=== PATIENT | male | born 1980 | race Caucasian/White ===

== ENCOUNTER 2016-12-25 04:00 | Inpatient (IN) | payer OTHER ==
[~2016-12-25] VITALS: Ht 170.2 cm; Wt 95.3 kg
--- NOTE | ~2016-12-25 | PN ---
Unit #: [id number] #: [id number] Patient: KATELYN SMITH [id number] [facility] [address] [place] [address] [id number] I MR#: [id number] NAME: KATELYN SMITH ROOM: [facility] Age: 36 Sex: M Admission Date: 12/25/2016 : 1980 Attending Physician: Luis E Dobbs M.D. Admitting Physician: Luis E Dobbs M.D. Primary Care Physician: Generic Doctor Not In System [facility] PROGRESS NOTES DATE OF SERVICE: 12/29/2016 SUBJECTIVE Mr. Smith is a 36-year-old white male with alcohol dependence and mood disorder, who was seen today and chart was reviewed, and case was discussed with the staff. He appears to be doing better and has been showing improvement in confusion and cognitive impairment . MENTAL STATUS EXAMINATION Young white male who was casually dressed with fair personal hygiene, appears to be in no acute distress or discomfort. He was awake and alert with impaired attention and concentration. His mood was anxious with a congruent affect. His speech was slow and tangential. He denies any suicidal or homicidal ideations, and also denies any auditory or visual hallucinations. His insight and judgment remain slightly impaired. TREATMENT PLAN 1. We will continue him on his current medications and treatment protocol. We will monitor his response to medications and make further adjustments as needed. 2. We will continue to follow up. Dictated by... Maria De Jesus Moralez/tom TD: 12/29/2016 15:58 JOB #: [id number] [facility] PROGRESS NOTES Page 1 of 1 X Luis E Dobbs MD PROGRESS NOTE
--- NOTE | ~2016-12-25 | PA ---
Unit #: [id number] #: [id number] Patient: KATELYN SMITH [id number] [facility] [address] [place] [address] [id number] I MR#: [id number] NAME: KATELYN SMITH. ROOM: P203 Age: 36 Sex: M Admission Date: 12/25/2016 : 1980 Date of Assessment: Attending Physician: Luis E Dobbs M.D. Admitting Physician: Luis E Dobbs M.D. Primary Care Physician: Generic Doctor Not In System PSYCHIATRIC ASSESSMENT IDENTIFYING DATA Mr. Smith is a 36-year-old, single, white male, who is a resident of [place], [place], and was transferred to from the emergency room at [facility], where an initial assessment was completed by the [facility] Team. CHIEF COMPLAINT "I've been drinking a lot and I'm suicidal." HISTORY OF PRESENT ILLNESS Mr. Smith is a 36-year-old white male with dual diagnosis of mood disorder and substance abuse, who brought himself to the Emergency Room stating that he has been drinking and he is suicidal and that his dad and he is depressed and arrived at [facility] with suicidal ideation, intent, means, and plan. Reports that he intended to take multiple pills of trazodone to commit suicide and stated that he has been drinking heavily and planned to commit suicide on 12/24/2016 and self admitted himself to the emergency room due to suicidal ideations. He was seen to be extremely depressed upon presentation stating that he has been severely depressed since the of his father and that he is having feelings of hopelessness, worthlessness and reports poor social support system and multiple stressors. He reports that his mother and father both have within the past 2 years and reports that he witnessed the mother commit suicide, and reports minimal supportive relationships and is unable to identify any specific individual in his support system and was seen to be a significant danger to himself and therefore, recommendation for inpatient level of care for safety and stabilization was made and patient was transferred to us. SUBSTANCE ABUSE HISTORY The patient reports history of experimentation with cannabis, but reports alcohol to be his drug of choice stating that he has been drinking since he was 14 years old and currently has been drinking 3 pints a day and has used heroin in the past as well with the last use being 10 days ago. PAST PSYCHIATRIC HISTORY The patient has had a history of inpatient psychiatric hospitalization in the past and review of the medical records indicate that he has been diagnosed and treated for mood disorder and is supposed to be on Effexor, Risperdal and hydroxyzine, though it is not clear if he has been compliant with the medication as he has not been able to show a therapeutic response, not to mention that he has been drinking heavily in conjunction with the medications with maximum response to antidepressant therapy. Unit #: [id number] #: [id number] Patient: KATELYN SMITH PAST MEDICAL HISTORY The patient's medical history is significant for gastroesophageal reflux disease. ALLERGIES Penicillin, Ceclor, erythromycin and sulfa drugs. PERSONAL AND SOCIAL HISTORY A 36-year-old white male, who reports that he is single, unemployed, and lives at home by himself and has poor social support system. MENTAL STATUS EXAMINATION Young white male, who was casually dressed with fair personal hygiene, appears to be in no acute distress or discomfort. He was awake and alert on interaction with intact orientation to time, place, and person. His mood was anxious and depressed with a congruent affect. His speech was slow and restricted in content. His thought processes were disorganized with some looseness of associations and flight of ideas and suicidal ideations. His insight and judgment remain significantly impaired. DIAGNOSTIC IMPRESSION Psychiatric: Major depressive disorder, recurrent, moderate, without psychotic features; alcohol dependence, moderate and acute withdrawals. Medical: Gastroesophageal reflux disease. Stressors: Moderate psychosocial stressors. TREATMENT PLAN 1. The patient has presented with a history of mood disorder and substance abuse and has been decompensating and will need inpatient hospitalization for safety and stabilization. We will start him back on his home medications and detox protocol will be initiated as well. We will monitor response to treatment interventions and we will make further adjustments as needed. 2. Supportive therapy was provided to the patient. 3. Safe, structured, and nourishing environment will be provided. ESTIMATED LENGTH OF STAY 4 to 5 days. ABILITY TO HELP SELF Limited. WILLINGNESS TO HELP SELF The patient appears to be willing to help self. STRENGTHS 1. Communicative. 2. Cooperative. PROBLEMS 1. Chronic dysphoric symptoms. 2. Poor social support system. DISCHARGE CRITERIA This will be contingent upon the patient's ability to show resolution of Unit #: [id number] #: [id number] Patient: KATELYN SMITH his depression and anxiety and his ability to stay safe to himself, particularly after discharge from the hospital. Dictated by... Maria De Jesus Moralez/tom TD: 12/26/2016 07:46 JOB #: [id number] PSYCHIATRIC ASSESSMENT Page 1 of 1 X Luis E Dobbs MD PSYCHIATRIC ASSESSMENT
--- NOTE | ~2016-12-25 | PN ---
Unit #: [id number] #: [id number] Patient: KATELYN SMITH [id number] [facility] [address] [place] [address] [id number] I MR#: [id number] NAME: KATELYN SMITH ROOM: P203 Age: 36 Sex: M Admission Date: 12/25/2016 : 1980 Attending Physician: Luis E Dobbs M.D. Admitting Physician: Luis E Dobbs M.D. Primary Care Physician: Generic Doctor Not In System [facility] PROGRESS NOTES DATE 12/26/2016 DISCUSSION Mr. Smith is a 36-year-old white male who was seen today and chart was reviewed and case was discussed with the staff who report patient has been confused, anxious, withdrawn and pacing the hallways and has been exhibiting bizarre behavior. Meanwhile, he reports persistent depression and poor sleep at night. No agitation or aggression has been noted. MENTAL STATUS EXAMINATION Young white male who was casually dressed with fair personal hygiene and appears to be in no acute distress or discomfort. He was awake and alert on interaction with intact orientation. His mood was anxious with congruent affect. He denies any suicidal or homicidal ideations. His insight and judgement remains slightly impaired. TREATMENT PLAN 1. Will continue his current medications and treatment protocol. Will monitor his response to the medications and make further adjustments as needed. 2. Will continue to follow up. Dictated by... Maria De Jesus Moralez/scotty TD: 12/26/2016 18:12 JOB #: [id number] Unit #: [id number] #: [id number] Patient: KATELYN SMITH PROGRESS NOTES Page 1 of 1 X Luis E Dobbs MD X PROGRESS NOTE
--- NOTE | ~2016-12-25 | CO ---
Unit #: [id number] #: [id number] Patient: KATELYN SMITH [id number] [facility] [address] [place] [address] [id number] I MR#: [id number] NAME: KATELYN SMITH ROOM: [facility] Age: 36 Sex: M Admission Date: 12/25/2016 : 1980 Attending Physician: Luis E Dobbs M.D. Primary Care Physician: Generic Doctor Not In System Consultation Date: 12/25/2016 CONSULTATION REPORT HISTORY OF PRESENT ILLNESS Katelyn reports history of thrush and it has been treated in the past with oral swish and swallow. Recently, he has noticed burning in his mouth and white patches on his tongue. This started about 4 to 5 days ago. He has no other complaints. PHYSICAL EXAMINATION CARDIAC: Regular rate and rhythm. No murmurs, gallops, or rubs. RESPIRATORY: Clear to auscultation bilaterally. HEENT: Oral white plaques on tongue. ASSESSMENT AND PLAN Thrush. We will begin nystatin 100,000 units/mL, use 5 mL q.i.d. for 10 days. The patient may swallow or spit the liquid. Dictated by... Destiny Amaro/tom TD: 12/26/2016 00:54 JOB #: [id number] CONSULTATION REPORT Page 1 of 1 X ALYSE HUBER APRN CONSULTATION REPORT
--- NOTE | ~2016-12-25 | PN ---
Unit #: [id number] #: [id number] Patient: KATELYN SMITH [id number] [facility] [address] [place] [address] [id number] I MR#: [id number] NAME: KATELYN SMITH ROOM: [facility] Age: 36 Sex: M Admission Date: 12/25/2016 : 1980 Attending Physician: Luis E Dobbs M.D. Admitting Physician: Luis E Dobbs M.D. Primary Care Physician: Generic Doctor Not In System [facility] PROGRESS NOTES DATE 12/30/2016 DISCUSSION Mr. Smith is a 36-year-old, white male who was seen today and chart was reviewed and case was discussed with the staff. He has been anxious, withdrawn and rather seclusive to himself. Meanwhile, he has been cooperative with the treatment recommendations. He has been taking the medication and tolerating them fairly well with no reported side effects. MENTAL STATUS EXAM Young white male who was casually dressed with fair personal hygiene, appears to be in no acute distress or discomfort. He was awake and alert on interaction with intact orientation. His mood was anxious with congruent affect. He denies any suicidal or homicidal ideation. His insight and judgement remains slightly impaired. TREATMENT PLAN 1. We will continue him on his current medications and treatment protocol. We will monitor his response to the medication and make further adjustments as needed. 2. We will continue to follow up. Dictated by... Maria De Jesus Moralez/michael TD: 01/01/2017 04:34 JOB #: [id number] Unit #: [id number] #: [id number] Patient: KATELYN SMITH PROGRESS NOTES Page 1 of 1 X Luis E Dobbs MD X PROGRESS NOTE
--- NOTE | ~2016-12-25 | DS ---
Unit #: [id number] #: [id number] [facility]: [facility] [id number] [facility] [address] [place] [address] [id number] I MR#: [id number] NAME: KATELYN SMITH ROOM: [facility] Age: 36 Sex: M Admission Date: 12/25/2016 : 1980 Discharge Date: 12/31/2016 Attending Physician: Luis E Dobbs M.D. Primary Care Physician: Generic Doctor Not In System DISCHARGE SUMMARY IDENTIFYING DATA Mr. Smith is a 36-year-old single white male, who is a resident of [place], [place], and was transferred to us from the emergency room at [facility] where he was initially assessed by the [facility] Time Team. DISCHARGE DIAGNOSES Psychiatric: Major depressive disorder, recurrent, moderate, without psychotic features; alcohol dependence, moderate and acute withdrawals. Medical: Gastroesophageal reflux disease. Stressors: Mild psychosocial stressors. HISTORY OF PRESENT ILLNESS Please see initial psychiatric evaluation for details. PAST PSYCHIATRIC HISTORY Please see initial psychiatric evaluation for details. PAST MEDICAL HISTORY Please see initial psychiatric evaluation for details. HOSPITAL COURSE The [facility] and was oriented to the hospital environment. Routine p.r.n. medications were initiated and he was started back on his home medications including his Effexor and Risperdal and detox protocol was initiated as well. However, the patient soon afterwards started going into delirium tremens and did end up in full blown acute delirium tremens with confusion, disorientation, looseness of association and hallucinations and as such, his level of precautions were increased and he was stepped up to the one-to-one level of care and was closely monitored. He was taking the medications regularly and was tolerating them fairly well and was able to come out of the delirium tremens and the level of precautions were tapered down. Meanwhile, he was taking the medications regularly and was tolerating them fairly well and was able to show complete resolution of his detox symptoms and was wanting to go home and was willing to continue treatment on an outpatient basis and as such, it was decided that he will be discharged home and will continue treatment on an outpatient basis. DISCHARGE MEDICATIONS Risperdal 2 mg at bedtime for mood disorder, Effexor XR 150 mg in the morning for depression, Lopressor 25 mg b.i.d. for hypertension, Pepcid 25 mg b.i.d. for gastroesophageal reflux disease. Unit #: [id number] #: [id number] Patient: KATELYN SMITH DISCHARGE CONDITION Stable. PROGNOSIS Fair. Dictated by... Maria De Jesus Moralez/tom TD: 12/31/2016 23:09 JOB #: [id number] DISCHARGE SUMMARY Page 1 of 1 X Luis E Dobbs MD X DISCHARGE SUMMARY
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
--- NOTE | ~2016-12-25 | PN ---
Unit #: [id number] #: [id number] Patient: KATELYN SMITH [id number] [facility] [address] [place] [address] [id number] MR#: [id number] NAME: KATELYN SMITH ROOM: P203 Age: 36 Sex: M Admission Date: 12/25/2016 : 1980 Attending Physician: Luis E Dobbs M.D. Admitting Physician: Luis E Dobbs M.D. Primary Care Physician: Generic Doctor Not In System [facility] PROGRESS NOTES DATE OF SERVICE 12/28/2016 DISCUSSION Mr. Smith is a 36-year-old white male with substance abuse and mood disorder who was seen today. Chart was reviewed and case was discussed with the staff who reports the patient has been doing somewhat better and appears to be coming out of the delirium tremens, and his one-to-one level of precaution has been tapered down during the day while awake only. Meanwhile, he has been taking the medications and tolerating them fairly well with no reported side effects. MENTAL STATUS EXAMINATION Young white male who is casually dressed with fair personal hygiene, appears to be in no acute distress or discomfort. He was awake and alert on interaction with intact orientation. His mood is anxious with congruent affect. He denies any suicidal or homicidal ideations. His insight and judgment remain slightly impaired. TREATMENT PLAN 1. We will continue him on his current medications and treatment protocol. We will monitor his response to the medications and make further adjustments as needed. 2. We will continue to follow up. Dictated by... Maria De Jesus Moralez/rao TD: 12/29/2016 07:55 JOB #: [id number] Unit #: [id number] #: [id number] Patient: KATELYN SMITH PROGRESS NOTES Page 1 of 1 X Luis E Dobbs MD PROGRESS NOTE
--- NOTE | ~2016-12-25 | HP ---
Unit #: [id number] #: [id number] Patient: KATELYN SHERIFF [id number] [place] [address] [id number] I MR#: [id number] NAME: KATELYN SHERIFF. ROOM: P208 Age: 36 Sex: M Admission Date: 12/25/2016 : 1980 Attending Physician: Luis E Dobbs M.D. Admitting Physician: Luis E Dobbs M.D. Primary Care Physician: Generic Doctor Not In System HISTORY AND PHYSICAL HISTORY OF PRESENT ILLNESS Katelyn is a 36-year-old male admitted on 12/25/[address] [place] [address] for detox from alcohol. PAST MEDICAL HISTORY GERD. PAST SURGICAL HISTORY None. SOCIAL HISTORY Smokes 1 pack of cigarettes daily. Drinks 3 pints of vodka daily. No illegal drug use. He is currently single and alone. FAMILY HISTORY Noncontributory. REVIEW OF SYSTEMS CONSTITUTIONAL: No fever or chills. HEENT: Denies any sore throat, ear pain or runny nose. CARDIOVASCULAR: Denies chest pain, irregular heart rhythm or palpitations. CHEST: Denies shortness of breath or cough. No hemoptysis. GASTROINTESTINAL: Denies nausea, vomiting, diarrhea or chronic constipation. ENDOCRINE: Denies history of increased thirst or urination. No recent significant weight loss or gain. GENITOURINARY: Denies dysuria, frequency, or hematuria. SKIN: Denies any rashes. HEMATOLOGIC: Denies history of increased bleeding or bruising. MUSCULOSKELETAL: Denies any hot, swollen joints. No generalized muscle pain. NEUROLOGIC: Denies problems with vision or speech. No frequent, severe headaches. No numbness, tingling or weakness in any extremities. Denies loss of bladder or bowel control. CURRENT MEDICATIONS Trazodone, Risperdal, Metoprolol, and hydroxyzine. ALLERGIES No known drug allergies. PHYSICAL EXAMINATION GENERAL: Alert, oriented, no acute distress. Unit #: [id number] #: [id number] Patient: KATELYN SHERIFF VITAL SIGNS: Blood pressure 114/95, heart rate 74, temperature 98.6. HEIGHT: 5 feet 7. WEIGHT: 210 pounds. SKIN: Warm, dry. No rashes or lesions, track paulino, cuts, etc. HEENT: Normocephalic. TMs not viewed. Candidal infection of mouth and throat. Medical consult was requested. Conjunctivae clear. PERRLA. EOM is intact. NECK: No lymphadenopathy or thyromegaly. HEART: Regular rate and rhythm. No murmur, gallop, or rub. LUNGS: Clear to auscultation bilaterally. ABDOMEN: Soft, nontender without palpable masses or hepatosplenomegaly. : Not assessed. EXTREMITIES: No evidence of cyanosis, clubbing, or edema. Moves all extremities independently without obvious deficit. NEUROLOGICAL: Grossly within normal limits. Cranial Nerves: II: Visual sheriff are intact. III, IV AND : Extraocular movements are intact. Pupils are equal, round and reactive to light. V: Facial sensation is grossly normal. VII: Facial movements and expression are normal. VIII: Auditory acuity grossly intact. IX, X: Uvula is midline. Phonation is normal. XI: Patient shrugs shoulders and turns head normally. XII: Tongue protrudes in the midline. Sensory and Motor Function: Sensory and motor sensation is grossly normal. Motor: moves all extremities well. Coordination: Gait is normal. Deep Tendon Reflexes: Intact. IMPRESSION 1. Psychiatric admission. 2. Gastroesophageal reflux disease. 3. Rash. RECOMMENDATIONS PSYCHIATRIC: Per psychiatrist. MEDICAL: No contraindication to participate in this facility's activities. MEDICAL PROGNOSIS Good. MEDICAL CONDITION Stable. Dictated by..Destiny Johnson TD: 12/25/2016 11:41 JOB #: [id number] Unit #: [id number] #: [id number] Patient: KATELYN SHERIFF HISTORY AND PHYSICAL Page 1 of 1 X ALYSE HUBER APRN HISTORY AND PHYSICAL
== END 2016-12-31 11:17 | disposition hospice, home (50) | DRG 885 ==
LOC: P2S 07:19
PROC: HZ2ZZZZ Detoxification Services for Substance Abuse Treatment (ICD-10-PCS; principal; 2016-12-25)
DX: F33.1 Major depressive disorder, recurrent, moderate (principal); B37.0 Candidal stomatitis; R45.851 Suicidal ideations; F10.230 Alcohol dependence with withdrawal, uncomplicated; K21.9 Gastro-esophageal reflux disease without esophagitis; F17.210 Nicotine dependence, cigarettes, uncomplicated; R21 Rash and other nonspecific skin eruption